=== PATIENT | male | born 1965 ===

== ENCOUNTER → 2019-02-11 | Outpatient (REF) ==
--- NOTE | 2019-02-11 15:39 | REP ---
LUMBOSACRAL SPINE, THREE VIEWS: AP and lateral views of lumbosacral spine are performed with three total views obtained. There is no compression fracture or malalignment with normal lumbar lordosis. There is mild diffuse spurring. There is minimal disc space narrowing with subchondral sclerosis at L4-L5 and L5-S1. There is sclerosis and spurring at the posterior facet joints of L4-L5 and L5-S1. The posterior elements are intact. There is slight curvature toward the left. IMPRESSION: Mild degenerative changes. Electronically Signed by Tyler Vieyra MD 02/13/2019 10:46 A
== END ==
LOC: M SMT 13:31
PROVIDERS: ATTEND Internal Medicine
DX: M51.36 Other intervertebral disc degeneration, lumbar region (principal)